=== PATIENT | female | born 1960 | race Caucasian/White ===

== ENCOUNTER → 2016-12-02 | Outpatient (CLI) | payer BC | LOC: BHSO 15:37 | DX: F42.2 Mixed obsessional thoughts and acts (principal) ==

== ENCOUNTER → 2017-01-20 | Outpatient (CLI) | payer BC | LOC: BHSO 15:27 | DX: F42.2 Mixed obsessional thoughts and acts (principal) ==

== ENCOUNTER → 2017-03-22 | Outpatient (CLI) | payer BC | LOC: BHSO 15:38 | DX: F42.2 Mixed obsessional thoughts and acts (principal) ==

== ENCOUNTER → 2017-07-03 | Outpatient (CLI) | payer BC | LOC: BHSO 11:32 | DX: F43.0 Acute stress reaction (principal) ==

== ENCOUNTER → 2017-09-20 | Outpatient (CLI) | payer BC | LOC: BHSO 13:11 | DX: F42.9 Obsessive-compulsive disorder, unspecified (principal) ==

== ENCOUNTER → 2017-11-27 | Outpatient (CLI) | payer BC | LOC: BHSO 15:00 | DX: F42.9 Obsessive-compulsive disorder, unspecified (principal) | CPT/HCPCS: G0463 ==